=== PATIENT | male | born 1985 | race Caucasian/White ===

== ENCOUNTER 2022-12-09 17:09 | Inpatient (IN) | payer BC ==
[2022-12-09] MEDS ORDERED: LORazepam 2 MG/ML INJ IV STA (17:33)
[2022-12-09] MEDS ORDERED: SODIUM CHLORIDE 0.9% 1,000 ML IV STA (17:33)
[2022-12-09] MEDS ORDERED: chlordiazePOXIDE 25 MG CAP PO STA (17:33)
--- NOTE | 2022-12-09 17:38 | ED ---
Alcohol HPI - General Chief Complaint: Alcohol Stated Complaint: Alcohol Withdrawl Time Seen by Provider: 12/09/22 17:28 Source: patient Mode of arrival: ambulatory Limitations: no limitations - History of Present Illness Initial Comments: Patient is a 37-year-old man here with concerns about withdrawal from alcohol. The patient states he drinks approximately three quarters of a fifth of alcohol per day for past 3 weeks approximately. He feels very anxious and tremulous. He has had some nausea and vomiting. No history of seizure. No recent trauma. 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) Previous Visits for Alcohol Intoxication?: Yes Recent Trauma: No Associated Symptoms: nausea, tremors Treatments Prior to Arrival: none - Related Data Previous Rx's Medication Instructions Recorded Folic Acid 1 mg PO DAILY tab 12/15/22 Gabapentin 300 mg PO TID #30 cap 12/15/22 Metoprolol Succinate (ER) [Toprol 50 mg PO BID 30 Days #60 tab 12/15/22 XL] Multivitamins, Thera [Multivitamin 1 each PO DAILY tab 12/15/22 (formulary)] Sertraline [Zoloft] 50 mg PO DAILY 30 Days #30 tab 12/15/22 Thiamine [Vitamin B-1] 300 mg PO TID tab 12/15/22 amLODIPine [Norvasc] 10 mg PO DAILY 30 Days #30 tab 12/15/22 hydrALAZINE HCL [Apresoline] 50 mg PO TID 30 Days #90 tab 12/15/22 Allergies Allergy/AdvReac Type Severity Reaction Status Date / Time No Known Allergies Allergy Verified 12/09/22 18:50 Review of Systems ROS Statement: Those systems with pertinent positive or pertinent negative responses have been documented in the HPI. ROS Other: All systems not noted in ROS Statement are negative. Constitutional: Denies: fever, chills Respiratory: Denies: cough, dyspnea Cardiovascular: Reports: palpitations. Denies: chest pain, edema Gastrointestinal: Denies: abdominal pain, nausea, vomiting, diarrhea Genitourinary: Denies: dysuria, hematuria Skin: Denies: rash Past Medical History Past Medical History: Hypertension History of Any Multi-Drug Resistant Organisms: None Reported Past Surgical History: Joint Replacement, Orthopedic Surgery Past Psychological History: No Psychological Hx Reported Smoking Status: Never smoker Past Alcohol Use History: Daily, Heavy Past Drug Use History: None Reported General Exam Limitations: no limitations General appearance: alert, anxious, other (Mild tremulousness) Head exam: Present: atraumatic, normocephalic Eye exam: Present: normal appearance, PERRL, EOMI. Absent: scleral icterus, conjunctival injection Neck exam: Present: normal inspection Respiratory exam: Present: normal lung sounds bilaterally. Absent: respiratory distress, wheezes, rales, rhonchi, stridor, accessory muscle use Cardiovascular Exam: Present: normal rhythm, tachycardia, normal heart sounds. Absent: systolic murmur, diastolic murmur, rubs, gallop GI/Abdominal exam: Present: soft. Absent: distended, tenderness, guarding, rebound, rigid, mass Extremities exam: Present: normal inspection, normal capillary refill. Absent: pedal edema, calf tenderness Back exam: Present: normal inspection. Absent: CVA tenderness (R), CVA tenderness (L) Neurological exam: Present: alert, oriented X3, CN II-XII intact. Absent: motor sensory deficit Skin exam: Present: warm, dry, intact, normal color. Absent: rash Course Vital Signs 12/09/22 12/09/22 12/09/22 17:11 18:00 19:00 Temperature 98.1 F Pulse Rate 135 H 117 H 121 H Respiratory 20 18 12 Rate Blood Pressure 161/107 188/96 162/103 O2 Sat by Pulse 95 95 95 Oximetry 12/09/22 12/09/22 20:35 21:25 Temperature Pulse Rate 117 H 113 H Respiratory 20 16 Rate Blood Pressure 144/97 147/97 O2 Sat by Pulse 96 96 Oximetry Medical Decision Making - Medical Decision Making Was pt. sent in by a medical professional or institution (, PA, KEY OPERATOR, urgent care, hospital, or snf...) When possible be specific @ -[No] Did you speak to anyone other than the patient for history (EMS, parent, family, police, friend...)? What history was obtained from this source @ -[No] Did you review nursing and triage notes (agree or disagree)? Why? @ -[I reviewed and agree with nursing and triage notes] Were old charts reviewed (outside hosp., previous admission, EMS record, old EKG , old radiological studies, urgent care reports/EKG's, snf records)? Report findings @ -[No old charts were reviewed] Differential Diagnosis (chest pain, altered mental status, abdominal pain women, abdominal pain men, vaginal bleeding, weakness, fever, dyspnea, syncope, headache, dizziness, GI bleed, back pain, seizure, CVA, palpatations, mental hea lth, musculoskeletal)? @ -[The differential diagnosis includes alcohol abuse, alcohol withdrawal syndrome, gastroenteritis, dehydration, amongst other conditions EKG interpreted by me (3pts min.). @ -[As above] X-rays interpreted by me (1pt min.). @ -[None done] CT interpreted by me (1pt min.). @ -[None done] U/S interpreted by me (1pt. min.). @ -[None done] What testing was considered but not performed or refused? (CT, X-rays, U/S, labs)? Why? @ -[None] What meds were considered but not given or refused? Why? @ -[None] Did you discuss the management of the patient with other professionals (professionals i.e. , PA, KEY OPERATOR, lab, RT, psych nurse, social work nurse, graphic specialist, teacher, fare enforcement officer, field nurse case manager)? Give summary @ -[Case discussed with admitting team Was smoking cessation discussed for >3mins.? @ -[No] Was critical care preformed (if so, how long)? @ -[No] Were there social determinants of health that impacted care today? How? (Homelessness, low income, unemployed, alcoholism, drug addiction, trans portation, low edu. Level, literacy, decrease access to med. care, [facility], rehab)? @ -[No] Was there de-escalation of care discussed even if they declined (Discuss DNR or withdrawal of care, Hospice)? DNR status @ -[No] What co-morbidities impacted this encounter? (DM, HTN, Smoking, COPD, CAD, Cancer, CVA, ARF, Chemo, Hep., AIDS, mental health diagnosis, sleep apnea, morbid obesity)? @ -[None] Was patient admitted / discharged? Hospital course, mention meds given and route, prescriptions, significant lab abnormalities, going to OR and other pertinent info. @ -[This patient is 37-year-old man who is manifesting symptoms of alcohol a trial and will be admitted to have benzodiazepine treatment to prevent severe DTs Undiagnosed new problem with uncertain prognosis? @ -[No] Drug Therapy requiring intensive monitoring for toxicity (Heparin, Nitro, Insulin, Cardizem)? @ -[No] Were any procedures done? @ -[No] Diagnosis/symptom? @ -[Acute delirium tremens Acute, or Chronic, or Acute on Chronic? @ -[default] Uncomplicated (without systemic symptoms) or Complicated (systemic symptoms)? @ -[Uncomplicated Side effects of treatment? @ -[No] Exacerbation, Progression, or Severe Exacerbation? @ -[No] Poses a threat to life or bodily function? How? (Chest pain, USA, DC, pneumonia, PE, COPD, DKA, ARF, appy, cholecystitis, CVA, Diverticulitis, Homicidal, Suicidal, threat to staff... and all critical care pts) @ -[Yes, untreated delirium tremens has significant morbidity/mortality - Lab Data Result diagrams: 12/13/22 08:02 12/13/22 08:02 Lab Results 12/09/22 12/09/22 12/09/22 Range/Units 17:49 17:49 17:49 WBC 10.7 H (3.8-10.6) k/uL RBC 4.79 (4.30-5.90) m/uL Hgb 15.4 (13.0-17.5) gm/dL Hct 44.0 (39.0-53.0) % MCV 91.8 (80.0-100.0) fL MCH 32.1 (25.0-35.0) pg MCHC 35.0 (31.0-37.0) g/dL RDW 13.2 (11.5-15.5) % Plt Count 250 (150-450) k/uL MPV 7.5 Neutrophils % 50 % Lymphocytes % 41 % Monocytes % 5 % Eosinophils % 1 % Basophils % 0 % Neutrophils # 5.4 (1.3-7.7) k/uL Lymphocytes # 4.4 (1.0-4.8) k/uL Monocytes # 0.6 (0-1.0) k/uL Eosinophils # 0.1 (0-0.7) k/uL Basophils # 0.0 (0-0.2) k/uL PT 10.9 (9.0-12.0) sec INR 1.0 (<1.2) Sodium 136 L (137-145) mmol/L Potassium 3.9 (3.5-5.1) mmol/L Chloride 97 L (98-107) mmol/L Carbon Dioxide 20 L (22-30) mmol/L Anion Gap 19 mmol/L BUN 7 L (9-20) mg/dL Creatinine 0.79 (0.66-1.25) mg/dL Est GFR (CKD-EPI)AfAm >90 (>60 ml/min/1.73 sqM) Est GFR (CKD-EPI)NonAf >90 (>60 ml/min/1.73 sqM) Glucose 117 H (74-99) mg/dL Calcium 9.1 (8.4-10.2) mg/dL Magnesium 2.3 (1.6-2.3) mg/dL Total Bilirubin 0.9 (0.2-1.3) mg/dL AST 64 H (17-59) U/L ALT 63 H (4-49) U/L Alkaline Phosphatase 77 (38-126) U/L Troponin I (0.000-0.034) ng/mL Total Protein 8.5 H (6.3-8.2) g/dL Albumin 5.1 H (3.5-5.0) g/dL Amylase 38 (30-110) U/L Lipase 109 (23-300) U/L Serum Alcohol 283 H* mg/dL 12/09/22 Range/Units 19:59 WBC (3.8-10.6) k/uL RBC (4.30-5.90) m/uL Hgb (13.0-17.5) gm/dL Hct (39.0-53.0) % MCV (80.0-100.0) fL MCH (25.0-35.0) pg MCHC (31.0-37.0) g/dL RDW (11.5-15.5) % Plt Count (150-450) k/uL MPV Neutrophils % % Lymphocytes % % Monocytes % % Eosinophils % % Basophils % % Neutrophils # (1.3-7.7) k/uL Lymphocytes # (1.0-4.8) k/uL Monocytes # (0-1.0) k/uL Eosinophils # (0-0.7) k/uL Basophils # (0-0.2) k/uL PT (9.0-12.0) sec INR (<1.2) Sodium (137-145) mmol/L Potassium (3.5-5.1) mmol/L Chloride (98-107) mmol/L Carbon Dioxide (22-30) mmol/L Anion Gap mmol/L BUN (9-20) mg/dL Creatinine (0.66-1.25) mg/dL Est GFR (CKD-EPI)AfAm (>60 ml/min/1.73 sqM) Est GFR (CKD-EPI)NonAf (>60 ml/min/1.73 sqM) Glucose (74-99) mg/dL Calcium (8.4-10.2) mg/dL Magnesium (1.6-2.3) mg/dL Total Bilirubin (0.2-1.3) mg/dL AST (17-59) U/L ALT (4-49) U/L Alkaline Phosphatase (38-126) U/L Troponin I <0.012 (0.000-0.034) ng/mL Total Protein (6.3-8.2) g/dL Albumin (3.5-5.0) g/dL Amylase (30-110) U/L Lipase (23-300) U/L Serum Alcohol mg/dL - EKG Data -: EKG Interpreted by Dc EKG shows normal: axis (Normal), intervals (Normal), QRS complexes (Normal) Rate: tachycardia (rate 160 bpm) Interpretation: other (The underlying rhythm appears to be supraventricular tachycardia rate 160 bpm) Disposition Clinical Impression: Alcohol withdrawal syndrome Disposition: ADMITTED IP TO THIS [facility] Condition: Stable Is patient prescribed a controlled substance at d/c from ED?: No
[2022-12-09 17:56] LABS: Basophils % (A) 0 %; Eosinophils # (A) 0.1 k/uL (0-0.7); Eosinophils % (A) 1 %; HGB 15.4 gm/dL (13.0-17.5); Lymphocytes # (A) 4.4 k/uL (1.0-4.8); Lymphocytes % (A) 41 %; MCH 32.1 pg (25.0-35.0); MCV 91.8 fL (80.0-100.0); Mean Platelet Volume 7.5; Monocytes # (A) 0.6 k/uL (0-1.0); Monocytes % (A) 5 %; Neutrophils # (A) 5.4 k/uL (1.3-7.7); Neutrophils % (A) 50 %; Platelet Count 250 k/uL (150-450); RBC 4.79 m/uL (4.30-5.90); RDW 13.2 % (11.5-15.5); WBC 10.7 k/uL (3.8-10.6)
[2022-12-09 18:06] LABS: Prothrombin Time 10.9 sec (9.0-12.0)
[2022-12-09 18:14] LABS: ALT 63 U/L (4-49); AST 64 U/L (17-59); African American GFR (CKD) >90 (>60 ml/min/1.73 sqM); Albumin 5.1 g/dL (3.5-5.0); Alkaline Phosphatase 77 U/L (38-126); Amylase 38 U/L (30-110); Anion Gap 19 mmol/L; Blood Urea Nitrogen 7 mg/dL (9-20); Calcium 9.1 mg/dL (8.4-10.2); Carbon Dioxide 20 mmol/L (22-30); Chloride 97 mmol/L (98-107); Glucose 117 mg/dL (74-99); Lipase 109 U/L (23-300); Magnesium 2.3 mg/dL (1.6-2.3); Non-African American GFR(CKD) >90 (>60 ml/min/1.73 sqM); Potassium 3.9 mmol/L (3.5-5.1); Sodium 136 mmol/L (137-145); Total Bilirubin 0.9 mg/dL (0.2-1.3); Total Protein 8.5 g/dL (6.3-8.2)
[2022-12-09] MEDS ORDERED: ONDANSETRON 4 MG/2 ML VIAL IVP STA (18:14)
[2022-12-09 18:21] LABS: Alcohol 283 mg/dL
[2022-12-09] MEDS ORDERED: NALOXONE 0.4 MG/ML 1 ML VIAL IV PRN (20:18)
[2022-12-09] MEDS ORDERED: LORazepam 2 MG/ML INJ IV PRN ×2 (20:20)
[2022-12-09] MEDS ORDERED: THIAMINE 100 MG/ML 2 ML VIAL IM STA (20:20)
[2022-12-09] MEDS: SODIUM CHLORIDE 0.9% 1,000 ML IV SCH (21:03)
[2022-12-09] MEDS: FAMOTIDINE 20 MG TAB PO SCH (22:35)
[2022-12-10] MEDS: LORazepam 2 MG/ML INJ IV PRN ×5 (00:14→20:38)
[2022-12-10] MEDS: ONDANSETRON 4 MG/2 ML VIAL IVP PRN ×2 (05:21→20:37)
[2022-12-10] MEDS: SODIUM CHLORIDE 0.9% 1,000 ML IV SCH ×2 (06:37→20:37)
[2022-12-10] MEDS: FOLIC ACID 1 MG TAB PO SCH (08:57)
[2022-12-10] MEDS: FAMOTIDINE 20 MG TAB PO SCH ×2 (08:57→20:36)
[2022-12-10] MEDS: MULTIVITAMINS, THERA 1 EACH TAB PO SCH (08:57)
[2022-12-10] MEDS ORDERED: THIAMINE 100 MG TAB PO SCH (09:00)
[2022-12-10] MEDS: ACETAMINOPHEN TAB 325 MG TAB PO PRN (10:57)
--- NOTE | 2022-12-10 11:42 | P.CN ---
Psychiatric Consult - . Consult date: 12/10/22 Consult:: 12/10/22 11:35 This is a psychiatric consultation on Caleb Woodall who is a 37-year-old male and was currently hospitalized with chronic issues with alcohol abuse and depression Patient admits that he has had chronic issues with some anxiety issues but is not sure if which came first He says that he started drinking during his adolescent years and that it has progressively gotten worse He says that he's been taking more than usual in the last 2 weeks where he is being drinking half to 1 bottle of vodka on a daily basis He says that he is tried to stop on his own but has experienced some withdrawals which shakiness and tremors He denies any suicidal ideations or plans 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 and denies that he has any stressful life or work He says that he is single and is not dealing with any stressful family issues He denies any previous psychiatric hospitalizations or treatments He denies any substance use treatment although he states that he has attended some AA classes Past history personal and social history Patient denies any other substance use besides alcohol He denies any history of psychiatric illness or treatment He denies any history of suicidal ideations or attempts Mental status examination: General Appearance: Casually dressed and groomed history clothes highlights in his hair Behavior: Patient is a laying in bed without any agitated behavior. Not responding to any internal stimuli Speech: Patient's speech is [fluent and nonpressured.] Mood/Affect: Patient reports their mood is "okay", affect is congruent and constricted. Suicidality/Homicidality: Patient denies having any homicidal ideation intent or plan. [Denies any suicidal ideations intent or plan] Perceptions: Patient denies any visual hallucinations [and denies any auditory hallucinations] Though content/process: Goal-directed sequential and logical Memory and concentration: Alert and oriented to time place and person concentration and attention span are fair Judgment and insight: Fair Diagnostic impression: Adjustment disorder with anxiety features Mood disorder most likely alcohol related Anxiety disorder most likely alcohol related Alcohol use disorder unspecified Plan: The patient does not meet the criteria for involuntary O voluntary psychiatric hospitalization Patient is a good candidate for initial detox and referral to a substance use program including attending psychosocial support system like AA and NA Would also recommend starting the patient on gabapentin 300 mg 3 times a day which would also help with withdrawal symptoms as well as decreasing the craving Similarly we'll also recommend starting the patient on naltrexone 50 mg daily as of tomorrow work is 1 day after the last alcohol dose It also from addition of Zoloft starting at 50 mg a day to start with which may help both anxiety and dysphoria Thank you very much for kind referral please feel free to contact me if any further questions Eddi West M.D. 12/10/2022
--- NOTE | 2022-12-10 12:28 | P.HPIM ---
History of Present Illness H&P Date: 12/10/22 History of present illness; patient is a 37-year-old gentleman with past medical history significant for alcohol abuse who presented to the ER for alcohol detox. Patient states that he has been drinking a lot recently. Patient admitted to drinking three quarters of a fifth of alcohol every day for the last few weeks. Patient denies any auditory or visual hallucinations. Does admit to being very anxious. Patient is unsteady on ambulation. No history of previous seizures. No complain of homicidal or suicidal thougts. Initial lab work in the ER showed WBC 10.7, hemoglobin 15.4, platelet count 250, sodium 1:30, potassium 3.9, BUN 7, creatinine 0.79, serum alcohol 283, AST 64, ALT 63 Patient admitted to medicine service REVIEW OF SYSTEMS: CONSTITUTIONAL: No fever, no malaise, no fatigue. Complaining of being restless and tremulous HEENT: No recent visual problems or hearing problems. Denied any sore throat. CARDIOVASCULAR: No chest pain, orthopnea, PND, no palpitations, no syncope. PULMONARY: No shortness of breath, no cough, no hemoptysis. GASTROINTESTINAL: Complaining of nausea and vomiting. Denies abdominal pain NEUROLOGICAL: No headaches, no weakness, no numbness. HEMATOLOGICAL: Denies any bleeding or petechiae. GENITOURINARY: Denies any burning micturition, frequency, or urgency. MUSCULOSKELETAL/RHEUMATOLOGICAL: Denies any joint pain, swelling, or any muscle pain. ENDOCRINE: Denies any polyuria or polydipsia. The rest of the 14-point review of systems is negative. PHYSICAL EXAMINATION: GENERAL: The patient is alert and oriented x3, not in any acute distress. Tremulous HEENT: Pupils are round and equally reacting to light. EOMI. No scleral icterus. No conjunctival pallor. Normocephalic, atraumatic. No pharyngeal erythema. No t hyromegaly. CARDIOVASCULAR: S1 and S2 present. No murmurs, rubs, or gallops. PULMONARY: Chest is clear to auscultation, no wheezing or crackles. ABDOMEN: Soft, nontender, nondistended, normoactive bowel sounds. No palpable organomegaly. MUSCULOSKELETAL: No joint swelling or deformity. EXTREMITIES: No cyanosis, clubbing, or pedal edema. NEUROLOGICAL: Gross neurological examination did not reveal any focal deficits. SKIN: No rashes. Assessment and plan alcohol abuse Alcoholic hepatitis Monitor vital signs Monitor CBC Monitor CMP Continue high dose thiamine and folic acid Continue CIWA protocol continue IV fluid continue antiemetics Patient counseled in detail regarding cessation of alcohol,. At this time is willing to stop drinking Consults psychiatry Past Medical History Past Medical History: Hypertension Additional Past Medical History / Comment(s): aortic insufficiency- dx 5 years ago History of Any Multi-Drug Resistant Organisms: None Reported Past Surgical History: Orthopedic Surgery Additional Past Surgical History / Comment(s): rt knee- repaired 3 ligaments Past Anesthesia/Blood Transfusion Reactions: Motion Sickness Past Psychological History: Anxiety, Depression, Panic Disorder Smoking Status: Former smoker Past Alcohol Use History: Daily, Heavy Additional Past Alcohol Use History / Comment(s): last 2 weeks at least a pint of Titos a day. Past Drug Use History: Cocaine Additional Drug Use History / Comment(s): cocaine use in the past, 3 years ago Medications and Allergies Home Medications Medication Instructions Recorded Confirmed Type No Known Home Medications 12/09/22 12/09/22 History Allergies Allergy/AdvReac Type Severity Reaction Status Date / Time No Known Allergies Allergy Verified 12/09/22 18:50 Physical Exam Vitals: Vital Signs Temp Pulse Pulse Resp BP BP Pulse Ox 12/10/22 04:00 99.1 F 107 H 14 129/74 99 12/10/22 00:15 16 12/10/22 00:00 99.4 F 120 H 16 133/78 96 12/09/22 21:51 98.6 F 109 H 16 154/95 97 12/09/22 21:25 113 H 16 147/97 96 12/09/22 20:35 117 H 20 144/97 96 12/09/22 19:00 121 H 12 162/103 95 12/09/22 18:00 117 H 18 188/96 95 12/09/22 17:11 98.1 F 135 H 20 161/107 95 Intake and Output 12/09/22 12/10/22 12/10/22 22:59 06:59 14:59 Intake Total 560 180 Balance 560 180 Intake: Oral 560 180 Other: # Voids 1 Weight 104.326 kg Results CBC & Chem 7: 12/09/22 17:49 12/09/22 17:49 Labs: Abnormal Lab Results - Last 24 Hours (Table) 12/09/22 12/09/22 Range/Units 17:49 17:49 WBC 10.7 H (3.8-10.6) k/uL Sodium 136 L (137-145) mmol/L Chloride 97 L (98-107) mmol/L Carbon Dioxide 20 L (22-30) mmol/L BUN 7 L (9-20) mg/dL Glucose 117 H (74-99) mg/dL AST 64 H (17-59) U/L ALT 63 H (4-49) U/L Total Protein 8.5 H (6.3-8.2) g/dL Albumin 5.1 H (3.5-5.0) g/dL Serum Alcohol 283 H* mg/dL Thrombosis Risk Factor Assmnt - Choose All That Apply Any of the Below Risk Factors Present?: No Other Risk Factors: No Other congenital or acquired thrombophilia - If yes, enter type in comment: No Thrombosis Risk Factor Assessment Level: Very Low Risk
[2022-12-10] MEDS: THIAMINE 100 MG TAB PO SCH ×2 (15:33→20:35)
[2022-12-10] MEDS: GABAPENTIN 300 MG CAP PO SCH ×2 (15:33→20:36)
[2022-12-10] MEDS: hydrALAZINE HCL 25 MG TAB PO PRN (16:01)
[2022-12-10] MEDS ORDERED: hydrALAZINE HCL 25 MG TAB PO STA (21:53)
[2022-12-11] MEDS: LORazepam 2 MG/ML INJ IV PRN (00:01)
[2022-12-11] MEDS: hydrALAZINE HCL 25 MG TAB PO PRN ×2 (00:49→07:52)
[2022-12-11] MEDS: GABAPENTIN 300 MG CAP PO SCH ×3 (07:53→20:27)
[2022-12-11] MEDS: THIAMINE 100 MG TAB PO SCH ×3 (07:53→20:27)
[2022-12-11] MEDS: FOLIC ACID 1 MG TAB PO SCH (07:53)
[2022-12-11] MEDS: FAMOTIDINE 20 MG TAB PO SCH ×2 (07:53→20:27)
[2022-12-11] MEDS: MULTIVITAMINS, THERA 1 EACH TAB PO SCH (07:53)
[2022-12-11] MEDS: SERTRALINE 50 MG TAB PO SCH (07:53)
[2022-12-11 08:47] LABS: Basophils % (A) 0 %; Eosinophils # (A) 0.2 k/uL (0-0.7); Eosinophils % (A) 3 %; HCT 46.2 % (39.0-53.0); HGB 15.7 gm/dL (13.0-17.5); Lymphocytes % (A) 33 %; MCH 32.3 pg (25.0-35.0); MCHC 33.9 g/dL (31.0-37.0); MCV 95.1 fL (80.0-100.0); Mean Platelet Volume 8.3; Monocytes # (A) 0.4 k/uL (0-1.0); Monocytes % (A) 7 %; Neutrophils # (A) 3.4 k/uL (1.3-7.7); Neutrophils % (A) 56 %; Platelet Count 126 k/uL (150-450); RBC 4.86 m/uL (4.30-5.90); RDW 13.5 % (11.5-15.5); WBC 6.1 k/uL (3.8-10.6)
[2022-12-11] MEDS: chlordiazePOXIDE 25 MG CAP PO PRN ×2 (09:34→20:26)
[2022-12-11 11:34] LABS: ALT 62 U/L (4-49); AST 69 U/L (17-59); African American GFR (CKD) >90 (>60 ml/min/1.73 sqM); Albumin 4.2 g/dL (3.5-5.0); Alkaline Phosphatase 65 U/L (38-126); Anion Gap 7 mmol/L; Blood Urea Nitrogen 9 mg/dL (9-20); Calcium 8.6 mg/dL (8.4-10.2); Carbon Dioxide 26 mmol/L (22-30); Chloride 103 mmol/L (98-107); Glucose 126 mg/dL (74-99); Non-African American GFR(CKD) >90 (>60 ml/min/1.73 sqM); Potassium 3.8 mmol/L (3.5-5.1); Sodium 136 mmol/L (137-145); Total Bilirubin 0.7 mg/dL (0.2-1.3)
[2022-12-11] MEDS: amLODIPine 5 MG TAB PO SCH (12:00)
--- NOTE | 2022-12-11 13:33 | P.PN ---
Subjective Progress Note Date: 12/11/22 patient is a 37-year-old gentleman with past medical history significant for alcohol abuse who presented to the ER for alcohol detox. Patient states that he has been drinking a lot recently. Patient admitted to drinking three quarters of a fifth of alcohol every day for the last few weeks. Patient denies any auditory or visual hallucinations. Does admit to being very anxious. Patient is unsteady on ambulation. No history of previous seizures. No complain of homicidal or suicidal thougts. Initial lab work in the ER showed WBC 10.7, hemoglobin 15.4, platelet count 250, sodium 1:30, potassium 3.9, BUN 7, creatinine 0.79, serum alcohol 283, AST 64, ALT 63 Patient admitted to medicine service 12/11. Patient seen and examined. Blood pressure continues to be elevated, discussed with patient regarding starting patient on blood pressure medication, patient agreed REVIEW OF SYSTEMS: CONSTITUTIONAL: No fever, no malaise,. CARDIOVASCULAR: No chest pain, no palpitations, no syncope. PULMONARY: No shortness of breath, no cough, GASTROINTESTINAL: No diarrhea, no nausea, no vomiting, no abdominal pain. NEUROLOGICAL: No headaches, no weakness, PHYSICAL EXAMINATION: GENERAL: The patient is alert and oriented x3, not in any acute distress. Well developed, well nourished. HEENT: Pupils are round and equally reacting to light. EOMI. No scleral icterus. No conjunctival pallor. Normocephalic, atraumatic. No pharyngeal erythema. No thyromegaly. CARDIOVASCULAR: S1 and S2 present. No murmurs, rubs, or gallops. PULMONARY: Chest is clear to auscultation, no wheezing or crackles. ABDOMEN: Soft, nontender, nondistended, normoactive bowel sounds. No palpable organomegaly. MUSCULOSKELETAL: No joint swelling or deformity. EXTREMITIES: No cyanosis, clubbing, or pedal edema. NEUROLOGICAL: Gross neurological examination did not reveal any focal deficits. SKIN: No rashes. Assessment and plan alcohol abuse Alcoholic hepatitis Hypertension Monitor vital signs Monitor CBC Monitor CMP Continue high dose thiamine and folic acid Continue CIWA protocol continue IV fluid Start Norvasc continue antiemetics Psych evaluated the patient recommended the following Patient is a good candidate for initial detox and referral to a substance use program including attending psychosocial support system like [facility] and NA Would also recommend starting the patient on gabapentin 300 mg 3 times a day which would also help with withdrawal symptoms as well as decreasing the craving Similarly we'll also recommend starting the patient on naltrexone 50 mg daily as of tomorrow work is 1 day after the last alcohol dose It also from addition of Zoloft starting at 50 mg a day to start with which may help both anxiety and dysphoria Objective - Vital Signs Vital signs: Vital Signs Temp 98 F 12/11/22 04:00 Pulse 71 12/11/22 04:00 Resp 18 12/11/22 04:00 BP 137/77 12/11/22 04:00 Pulse Ox 97 12/11/22 04:00 FiO2 Intake & Output 12/10/22 12/11/22 12/11/22 18:59 06:59 18:59 Intake Total 900 180 Balance 900 180 Intake: Oral 900 180 Other: Voiding Method Toilet # Voids 3 2 - Labs CBC & Chem 7: 12/11/22 07:42 12/11/22 10:25 Labs: Abnormal Lab Results - Last 24 Hours (Table) 12/11/22 Range/Units 07:42 Plt Count 126 L (150-450) k/uL
[2022-12-11 14:04] VITALS: BMI 30.3
[2022-12-11] MEDS: SODIUM CHLORIDE 0.9% 1,000 ML IV SCH (16:04)
[2022-12-11] MEDS: hydrALAZINE HCL 25 MG TAB PO SCH ×2 (16:06→20:27)
[2022-12-12] MEDS: chlordiazePOXIDE 25 MG CAP PO PRN ×3 (09:37→22:00)
[2022-12-12] MEDS: MULTIVITAMINS, THERA 1 EACH TAB PO SCH (09:37)
[2022-12-12] MEDS: SERTRALINE 50 MG TAB PO SCH (09:37)
[2022-12-12] MEDS: amLODIPine 5 MG TAB PO SCH (09:37)
[2022-12-12] MEDS: FOLIC ACID 1 MG TAB PO SCH (09:37)
[2022-12-12] MEDS: THIAMINE 100 MG TAB PO SCH ×3 (09:37→20:35)
[2022-12-12] MEDS: GABAPENTIN 300 MG CAP PO SCH ×3 (09:37→20:32)
[2022-12-12] MEDS: hydrALAZINE HCL 25 MG TAB PO SCH ×3 (09:37→20:33)
[2022-12-12] MEDS: FAMOTIDINE 20 MG TAB PO SCH ×2 (09:37→20:32)
--- NOTE | 2022-12-12 12:53 | P.PN ---
Subjective Progress Note Date: 12/12/22 patient is a 37-year-old gentleman with past medical history significant for alcohol abuse who presented to the ER for alcohol detox. Patient states that he has been drinking a lot recently. Patient admitted to drinking three quarters of a fifth of alcohol every day for the last few weeks. Patient denies any auditory or visual hallucinations. Does admit to being very anxious. Patient is unsteady on ambulation. No history of previous seizures. No complain of homicidal or suicidal thougts. Initial lab work in the ER showed WBC 10.7, hemoglobin 15.4, platelet count 250, sodium 1:30, potassium 3.9, BUN 7, creatinine 0.79, serum alcohol 283, AST 64, ALT 63 Patient admitted to medicine service 12/11. Patient seen and examined. Blood pressure continues to be elevated, discussed with patient regarding starting patient on blood pressure medication, patient agreed 12/12. Patient seen and examined. Blood pressure continues to be elevated, currently on Norvasc and hydralazine REVIEW OF SYSTEMS: CONSTITUTIONAL: No fever, no malaise,. CARDIOVASCULAR: No chest pain, no palpitations, no syncope. PULMONARY: No shortness of breath, no cough, GASTROINTESTINAL: No diarrhea, no nausea, no vomiting, no abdominal pain. NEUROLOGICAL: No headaches, no weakness, PHYSICAL EXAMINATION: GENERAL: The patient is alert and oriented x3, not in any acute distress. Well developed, well nourished. HEENT: Pupils are round and equally reacting to light. EOMI. No scleral icterus. No conjunctival pallor. Normocephalic, atraumatic. No pharyngeal erythema. No thyromegaly. CARDIOVASCULAR: S1 and S2 present. No murmurs, rubs, or gallops. PULMONARY: Chest is clear to auscultation, no wheezing or crackles. ABDOMEN: Soft, nontender, nondistended, normoactive bowel sounds. No palpable organomegaly. MUSCULOSKELETAL: No joint swelling or deformity. EXTREMITIES: No cyanosis, clubbing, or pedal edema. NEUROLOGICAL: Gross neurological examination did not reveal any focal deficits. SKIN: No rashes. Assessment and plan alcohol abuse Alcoholic hepatitis Hypertension Monitor vital signs Monitor CBC Monitor CMP Continue high dose thiamine and folic acid Continue CIWA protocol Continue Norvasc and hydralazine continue antiemetics Psych evaluated the patient recommended the following Patient is a good candidate for initial detox and referral to a substance use program including attending psychosocial support system like AA and NA Would also recommend starting the patient on gabapentin 300 mg 3 times a day which would also help with withdrawal symptoms as well as decreasing the craving Similarly we'll also recommend starting the patient on naltrexone 50 mg daily as of tomorrow work is 1 day after the last alcohol dose It also from addition of Zoloft starting at 50 mg a day to start with which may help both anxiety and dysphoria Objective - Vital Signs Vital signs: Vital Signs Temp 97.6 F 12/11/22 23:28 Pulse 89 12/12/22 04:00 Resp 14 12/12/22 04:00 BP 156/102 12/12/22 04:00 Pulse Ox 98 12/12/22 04:00 FiO2 Intake & Output 12/11/22 12/12/22 12/12/22 18:59 06:59 18:59 Intake Total 540 Balance 540 Weight 104.326 kg Intake: Oral 540 Other: Voiding Method Toilet Toilet # Voids 3 - Labs CBC & Chem 7: 12/11/22 07:42 12/11/22 10:25 Labs: Abnormal Lab Results - Last 24 Hours (Table) 12/11/22 Range/Units 10:25 Sodium 136 L (137-145) mmol/L Glucose 126 H (74-99) mg/dL AST 69 H (17-59) U/L ALT 62 H (4-49) U/L
[2022-12-12 16:24] LABS: Appearance,Urine Clear (Clear); Bilirubin,Urine Negative (Negative); Blood,Urine Negative (Negative); Color,Urine Colorless; Glucose,Urine (UA) Negative (Negative); Ketones,Urine Negative (Negative); Leukocyte Esterase,Urine Negative (Negative); Nitrite,Urine Negative (Negative); PH, Urine 6.5 (5.0-8.0); Protein,Urine Negative (Negative); Specific Gravity,Urine 1.002 (1.001-1.035); Urobilinogen,Urine <2.0 mg/dL (<2.0)
[2022-12-13] MEDS: ACETAMINOPHEN TAB 325 MG TAB PO PRN ×2 (03:23→16:56)
[2022-12-13] MEDS: chlordiazePOXIDE 25 MG CAP PO PRN ×3 (03:23→15:59)
[2022-12-13 08:41] LABS: Basophils % (A) 1 %; Eosinophils # (A) 0.3 k/uL (0-0.7); Eosinophils % (A) 4 %; HCT 48.8 % (39.0-53.0); HGB 16.4 gm/dL (13.0-17.5); Lymphocytes # (A) 3.1 k/uL (1.0-4.8); Lymphocytes % (A) 36 %; MCH 31.8 pg (25.0-35.0); MCHC 33.6 g/dL (31.0-37.0); MCV 94.5 fL (80.0-100.0); Mean Platelet Volume 7.7; Monocytes # (A) 0.6 k/uL (0-1.0); Monocytes % (A) 8 %; Neutrophils # (A) 4.2 k/uL (1.3-7.7); Neutrophils % (A) 49 %; Platelet Count 149 k/uL (150-450); RBC 5.16 m/uL (4.30-5.90); RDW 13.9 % (11.5-15.5); WBC 8.5 k/uL (3.8-10.6)
[2022-12-13] MEDS: THIAMINE 100 MG TAB PO SCH ×3 (08:50→20:28)
[2022-12-13] MEDS: amLODIPine 10 MG TAB PO SCH (08:50)
[2022-12-13] MEDS: hydrALAZINE HCL 25 MG TAB PO SCH (08:50)
[2022-12-13] MEDS: FOLIC ACID 1 MG TAB PO SCH (08:50)
[2022-12-13] MEDS: FAMOTIDINE 20 MG TAB PO SCH ×2 (08:50→20:28)
[2022-12-13] MEDS: GABAPENTIN 300 MG CAP PO SCH ×3 (08:50→20:28)
[2022-12-13] MEDS: SERTRALINE 50 MG TAB PO SCH (08:50)
[2022-12-13] MEDS: MULTIVITAMINS, THERA 1 EACH TAB PO SCH (08:50)
[2022-12-13 08:57] LABS: ALT 162 U/L (4-49); African American GFR (CKD) >90 (>60 ml/min/1.73 sqM); Albumin 4.9 g/dL (3.5-5.0); Anion Gap 16 mmol/L; Blood Urea Nitrogen 13 mg/dL (9-20); Calcium 9.6 mg/dL (8.4-10.2); Carbon Dioxide 20 mmol/L (22-30); Chloride 100 mmol/L (98-107); Glucose 101 mg/dL (74-99); Non-African American GFR(CKD) >90 (>60 ml/min/1.73 sqM); Sodium 136 mmol/L (137-145); Total Protein 8.2 g/dL (6.3-8.2)
[2022-12-13 09:03] LABS: Potassium 4.2 mmol/L (3.5-5.1)
[2022-12-13 09:04] LABS: AST 168 U/L (17-59); Alkaline Phosphatase 72 U/L (38-126)
[2022-12-13] MEDS ORDERED: hydrALAZINE HCL 25 MG TAB PO STA (12:46)
--- NOTE | 2022-12-13 14:11 | P.PN ---
Subjective Progress Note Date: 12/13/22 patient is a 37-year-old gentleman with past medical history significant for alcohol abuse who presented to the ER for alcohol detox. Patient states that he has been drinking a lot recently. Patient admitted to drinking three quarters of a fifth of alcohol every day for the last few weeks. Patient denies any auditory or visual hallucinations. Does admit to being very anxious. Patient is unsteady on ambulation. No history of previous seizures. No complain of homicidal or suicidal thougts. Initial lab work in the ER showed WBC 10.7, hemoglobin 15.4, platelet count 250, sodium 1:30, potassium 3.9, BUN 7, creatinine 0.79, serum alcohol 283, AST 64, ALT 63 Patient admitted to medicine service 12/11. Patient seen and examined. Blood pressure continues to be elevated, discussed with patient regarding starting patient on blood pressure medication, patient agreed 12/12. Patient seen and examined. Blood pressure continues to be elevated, currently on Norvasc and hydralazine 12/13. Patient seen and examined. Blood pressure is still elevated. Dose of Norvasc and hydralazine increased REVIEW OF SYSTEMS: CONSTITUTIONAL: No fever, no malaise,. CARDIOVASCULAR: No chest pain, no palpitations, no syncope. PULMONARY: No shortness of breath, no cough, GASTROINTESTINAL: No diarrhea, no nausea, no vomiting, no abdominal pain. NEUROLOGICAL: No headaches, no weakness, PHYSICAL EXAMINATION: GENERAL: The patient is alert and oriented x3, not in any acute distress. Well developed, well nourished. HEENT: Pupils are round and equally reacting to light. EOMI. No scleral icterus. No conjunctival pallor. Normocephalic, atraumatic. No pharyngeal erythema. No thyromegaly. CARDIOVASCULAR: S1 and S2 present. No murmurs, rubs, or gallops. PULMONARY: Chest is clear to auscultation, no wheezing or crackles. ABDOMEN: Soft, nontender, nondistended, normoactive bowel sounds. No palpable organomegaly. MUSCULOSKELETAL: No joint swelling or deformity. EXTREMITIES: No cyanosis, clubbing, or pedal edema. NEUROLOGICAL: Gross neurological examination did not reveal any focal deficits. SKIN: No rashes. Assessment and plan alcohol abuse Alcoholic hepatitis Hypertension Monitor vital signs Monitor CBC Monitor CMP Continue high dose thiamine and folic acid Continue CIWA protocol Continue Norvasc and hydralazine, does of Norvasc increased to 10 mg, Ordered 2-D echo continue antiemetics Psych evaluated the patient recommended the following Patient is a good candidate for initial detox and referral to a substance use program including attending psychosocial support system like [facility] and [facility] Would also recommend starting the patient on gabapentin 300 mg 3 times a day which would also help with withdrawal symptoms as well as decreasing the craving Similarly we'll also recommend starting the patient on naltrexone 50 mg daily as of tomorrow work is 1 day after the last alcohol dose It also from addition of Zoloft starting at 50 mg a day to start with which may help both anxiety and dysphoria Consult cardiology Objective - Vital Signs Vital signs: Vital Signs Temp 98.2 F 12/13/22 08:15 Pulse 112 H 12/13/22 08:15 Resp 17 12/13/22 08:15 BP 169/106 12/13/22 08:15 Pulse Ox 99 12/13/22 08:15 FiO2 Intake & Output 12/12/22 12/13/22 12/13/22 18:59 06:59 18:59 Intake Total 500 540 240 Output Total 300 Balance 500 540 -60 Intake: Oral 500 540 240 Output: Urine 300 Other: Voiding Method Toilet Toilet # Voids 3 1 # Bowel Movements 1 - Labs CBC & Chem 7: 12/13/22 08:02 12/13/22 08:02 Labs: Abnormal Lab Results - Last 24 Hours (Table) 12/13/22 12/13/22 Range/Units 08:02 08:02 Plt Count 149 L (150-450) k/uL Sodium 136 L (137-145) mmol/L Carbon Dioxide 20 L (22-30) mmol/L Glucose 101 H (74-99) mg/dL AST 168 H (17-59) U/L ALT 162 H (4-49) U/L
--- NOTE | 2022-12-13 14:15 | P.CRDCN ---
History of Present Illness Consult date: 12/13/22 Reason for Consult (text): Hypertensive emergency History of present illness: History of present illness: This is a 37-year-old male patient with past medical history of anxiety, alcohol abuse. Patient has never been diagnosed with hypertension nor started on medication but believes he has been hypertensive for long time. Patient came into the hospital on 12/09 for alcohol intoxication with intent for rehab. Patient was found to be hypertensive throughout his stay and has been started on amlodipine and hydralazine. Both medications have been increased today as his blood pressure is running 169/106. Heart rate is 99-120. Patient denies any cardiac history, no family cardiac history in his immediate family. He is a nonsmoker, he denies illicit drug use. Prior to admission, he was drinking three quarters of the fifth per day. His last alcohol intake was 4 days ago. Echocardiogram has been done and report is pending. EKG sinus tachycardia WBC 8.5, hemoglobin 16.4, platelet count 149. Sodium 136, potassium 4.2, BUN 13 creatinine 0.8. Blood sugar 101. AST 168, ALT 162, alkaline phosphatase 72. TSH 4.510. Cortisol level XVI. Alcohol level [id number] on admission. Urinalysis negative. Home cardiac medications: None Review Of Systems: At the time of my evaluation: Constitutional: No fever, no chills. No weakness, fatigue or lethargy. EENT: No headache. No dizziness. Lungs: No shortness of breath, cough, no sputum production. No wheezing. Cardiovascular: No chest pain, no lower extremity edema. No palpitations. No paroxysmal nocturnal dyspnea. No orthopnea. No lightheadedness or dizziness. No syncopal episodes. Abdominal: No abdominal pain. No nausea, vomiting. Musculoskeletal: No myalgias. No muscle weakness, no frequent falls. Neurologic: No aphasia. No facial droop. No change in mentation. No head injury. No headache. Physical examination: Gen: This is a 37-year-old male. He is resting but appears to be comfortable and in no acute distress. VS: reviewed HEENT: Head is atraumatic, normocephalic. Pupils equal, round. Sclerae is anicteric. NECK: Supple. No JVD. . LUNGS: Clear to auscultation. No wheezes or rhonchi. No intercostal retractions. HEART: Regular rate and rhythm. No murmur. ABDOMEN: Soft No tenderness. EXTREMITIES: No pedal edema. No calf tenderness. NEUROLOGICAL: Patient is awake, alert and oriented x3. Assessment: Hypertensive emergency Alcohol intoxication Alcohol abuse Elevated liver function tests Thrombocytopenia Plan: Continue patient on current medications which include Norvasc 10 mg daily and hydralazine 50 mg 3 times daily scheduled to get the increased dose of 4 PM Give 1 additional hydralazine 25 mg now Start patient on beta carrington Toprol-XL 25 mg daily for tachycardia Obtain 2-D echocardiogram and Doppler study report Further recommendations to follow based upon clinical course Thank you kindly for this consultation. Nurse practitioner note has been reviewed, I agree with documented findings and plan of care. Patient was seen and examined. Past Medical History Past Medical History: Hypertension Additional Past Medical History / Comment(s): aortic insufficiency- dx 5 years ago History of Any Multi-Drug Resistant Organisms: None Reported Past Surgical History: Orthopedic Surgery Additional Past Surgical History / Comment(s): rt knee- repaired 3 ligaments Past Anesthesia/Blood Transfusion Reactions: Motion Sickness Past Psychological History: Anxiety, Depression, Panic Disorder Smoking Status: Former smoker Past Alcohol Use History: Daily, Heavy Additional Past Alcohol Use History / Comment(s): last 2 weeks at least a pint of Titos a day. Past Drug Use History: Cocaine Additional Drug Use History / Comment(s): cocaine use in the past, 3 years ago Medications and Allergies Home Medications Medication Instructions Recorded Confirmed Type No Known Home Medications 12/09/22 12/09/22 History Allergies Allergy/AdvReac Type Severity Reaction Status Date / Time No Known Allergies Allergy Verified 12/09/22 18:50 Physical Exam Vitals: Vital Signs Temp Pulse Resp BP BP Pulse Ox 12/13/22 08:15 98.2 F 112 H 17 169/106 99 12/13/22 08:00 17 12/13/22 03:18 98.1 F 99 16 156/104 12/12/22 23:06 98.6 F 104 H 16 162/102 98 12/12/22 19:25 98.6 F 118 H 16 189/104 98 12/12/22 16:15 124 H 17 182/106 97 12/12/22 12:15 108 H 18 171/101 99 Intake and Output 12/12/22 12/13/22 12/13/22 22:59 06:59 14:59 Intake Total 540 240 Output Total 300 Balance 540 -60 Intake: Oral 540 240 Output: Urine 300 Other: Voiding Method Toilet Toilet # Voids 3 1 # Bowel Movements 1 Results 12/13/22 08:02 12/13/22 08:02 Cardiac Enzymes 12/13/22 Range/Units 08:02 AST 168 H (17-59) U/L CBC 12/13/22 Range/Units 08:02 WBC 8.5 (3.8-10.6) k/uL RBC 5.16 (4.30-5.90) m/uL Hgb 16.4 (13.0-17.5) gm/dL Hct 48.8 (39.0-53.0) % Plt Count 149 L (150-450) k/uL Comprehensive Metabolic Panel 12/13/22 Range/Units 08:02 Sodium 136 L (137-145) mmol/L Potassium 4.2 (3.5-5.1) mmol/L Chloride 100 (98-107) mmol/L Carbon Dioxide 20 L (22-30) mmol/L BUN 13 (9-20) mg/dL Creatinine 0.88 (0.66-1.25) mg/dL Glucose 101 H (74-99) mg/dL Calcium 9.6 (8.4-10.2) mg/dL AST 168 H (17-59) U/L ALT 162 H (4-49) U/L Alkaline Phosphatase 72 (38-126) U/L Total Protein 8.2 (6.3-8.2) g/dL Albumin 4.9 (3.5-5.0) g/dL Current Medications Generic Name Dose Route Start Last Admin Trade Name Freq PRN Reason Stop Dose Admin Acetaminophen 325 mg 12/10/22 10:33 12/13/22 03:23 Acetaminophen Tab 325 Mg Tab PO 325 mg Q6HR PRN Administration Fever and/ or Pain Amlodipine Besylate 10 mg 12/13/22 09:00 12/13/22 08:50 Amlodipine 10 Mg Tab PO 10 mg DAILY MINNIE Administration Chlordiazepoxide HCl 25 mg 12/09/22 20:20 12/13/22 11:28 Chlordiazepoxide 25 Mg Cap PO 25 mg Q4HR PRN Administration Ciwa 4 To 5 Famotidine 20 mg 12/09/22 21:00 12/13/22 08:50 Famotidine 20 Mg Tab PO 20 mg BID MINNIE Administration Folic Acid 1 mg 12/10/22 09:00 12/13/22 08:50 Folic Acid 1 Mg Tab PO 1 mg DAILY MINNIE Administration Gabapentin 300 mg 12/10/22 16:00 12/13/22 08:50 Gabapentin 300 Mg Cap PO 300 mg TID MINNIE Administration Hydralazine HCl 50 mg 12/13/22 16:00 Hydralazine Hcl 50 Mg Tab PO TID MINNIE Lorazepam 1 mg 12/09/22 20:20 12/11/22 00:01 Lorazepam 2 Mg/Ml Inj IV 1 mg Q2HR PRN Administration CIWA 8 or 9 Lorazepam 1 mg 12/09/22 20:20 Lorazepam 2 Mg/Ml Inj IV Q1HR PRN CIWA 10 to 15 Multivitamins 1 each 12/10/22 09:00 12/13/22 08:50 Multivitamins, Thera 1 Each Tab PO 1 each DAILY MINNIE Administration Naloxone HCl 0.2 mg 12/09/22 20:18 Naloxone 0.4 Mg/Ml 1 Ml Vial IV Q2M PRN Opioid Reversal Ondansetron HCl 4 mg 12/10/22 05:16 12/10/22 20:37 Ondansetron 4 Mg/2 Ml Vial IVP 4 mg Q8H PRN Administration Nausea And Vomiting Sertraline HCl 50 mg 12/11/22 09:00 12/13/22 08:50 Sertraline 50 Mg Tab PO 50 mg DAILY MINNIE Administration Thiamine HCl 300 mg 12/10/22 16:00 12/13/22 08:50 Thiamine 100 Mg Tab PO 300 mg TID MINNIE Administration Intake and Output 12/12/22 12/13/22 12/13/22 22:59 06:59 14:59 Intake Total 540 240 Output Total 300 Balance 540 -60 Intake: Oral 540 240 Output: Urine 300 Other: Voiding Method Toilet Toilet # Voids 3 1 # Bowel Movements 1 12/13/22 08:02 12/13/22 08:02
[2022-12-13] MEDS: METOPROLOL SUCCINATE (ER) 25 MG TAB.ER.24H PO SCH (15:56)
[2022-12-13] MEDS: hydrALAZINE HCL 50 MG TAB PO SCH ×2 (15:56→20:28)
--- NOTE | 2022-12-14 05:45 | P.PN ---
Subjective Progress Note Date: 12/14/22 Principal diagnosis: Hypertension emergency This is a 37-year-old gentleman who was admitted to the hospital with alcohol intoxication and hypertension emergency. Also he was found to have elevated liver function tests and thrombocytopenia. He underwent an echo which is pendin g at this point. He was seen this morning. He is asymptomatic and he is no dynamic is stable. Blood work still pending this morning. He reports no cardiovascular symptoms. Assessment Alcohol intoxication Hypertension emergency Abnormal liver function tests Thrombocytopenia Plan Continue the current medical regimen. The pressure appeared to be under good control on the current medical regimen Follow-up with a blood work from this morning Follow-up on the echocardiogram which is still pending Objective - Vital Signs Vital signs: Vital Signs Temp 98.0 F 12/14/22 03:54 Pulse 93 12/14/22 03:54 Resp 16 12/14/22 03:54 BP 133/82 12/14/22 03:54 Pulse Ox 98 12/14/22 03:54 FiO2 Intake & Output 12/13/22 12/13/22 12/14/22 06:59 18:59 06:59 Intake Total 540 1736 360 Output Total 300 Balance 540 1436 360 Intake: Oral 540 1736 360 Output: Urine 300 Other: Voiding Method Toilet Toilet # Voids 1 5 1 # Bowel Movements 1 - Labs CBC & Chem 7: 12/13/22 08:02 12/13/22 08:02 Labs: Abnormal Lab Results - Last 24 Hours (Table) 12/13/22 12/13/22 Range/Units 08:02 08:02 Plt Count 149 L (150-450) k/uL Sodium 136 L (137-145) mmol/L Carbon Dioxide 20 L (22-30) mmol/L Glucose 101 H (74-99) mg/dL AST 168 H (17-59) U/L ALT 162 H (4-49) U/L
[2022-12-14] MEDS: MULTIVITAMINS, THERA 1 EACH TAB PO SCH (07:58)
[2022-12-14] MEDS: hydrALAZINE HCL 50 MG TAB PO SCH ×3 (07:58→20:56)
[2022-12-14] MEDS: FOLIC ACID 1 MG TAB PO SCH (07:58)
[2022-12-14] MEDS: amLODIPine 10 MG TAB PO SCH (07:58)
[2022-12-14] MEDS: GABAPENTIN 300 MG CAP PO SCH ×3 (07:58→20:56)
[2022-12-14] MEDS: FAMOTIDINE 20 MG TAB PO SCH ×2 (07:58→20:56)
[2022-12-14] MEDS: METOPROLOL SUCCINATE (ER) 25 MG TAB.ER.24H PO SCH (07:59)
[2022-12-14] MEDS: SERTRALINE 50 MG TAB PO SCH (07:59)
[2022-12-14] MEDS: THIAMINE 100 MG TAB PO SCH ×3 (07:59→20:56)
[2022-12-14] MEDS: chlordiazePOXIDE 25 MG CAP PO PRN ×3 (08:04→22:54)
--- NOTE | 2022-12-14 09:11 | CDI ---
Documentation Clarification Form Date: 12/13/2022 01:05:00 PM From: Nhi Rizvi RN,CCDS Admit Date: 12/09/2022 08:18:00 PM Patient Name: Roger Woodall Visit Number: [id number] Discharge Date: ATTENTION: The Clinical Documentation Specialists (CDI) and [facility] Coding Staff appreciate your assistance in clarifying documentation. Please respond to the clarification below the line at the bottom and electronically sign. The CDI & [facility] Coding staff will review the response and follow-up if needed. Please note: Queries are made part of the Legal Health Record. If you have any questions, please contact the author of this message via ITS. Dr. Shon Her Your patient has elevated blood pressure on admission and continue per progress notes on 12/12/2022. Based on this information and the findings below, is there an additional diagnosis that is clinically appropriate for this patient? Patient history/risk factors: Hypertension, Daily alcohol use Clinical Indicators: 37-year-old male present with concerns about withdrawal from alcohol. He feels very anxious and tremulous. He has had some nausea and vomiting. 12/09 VS: 161/107 135 20 188/96 117 18 162/103 121 12 12/10 VS 149/96 115 18 159/97 102 19 189/102 108 18 12/11 VS: 183/108 95 17 168/100 [id number] 75 18 12/12 VS / 108 18 182/106 124 17 189/104 118 16 Treatment: Cardiac/Telemetry monitoring Monitor VS, CBC, CMP Continue CIWA protocol Norvasc 10 MG PO Daily 12/13; Toprol Xl 25 MG PO Daily Apresoline 50 MG PO TID 12/13 Ativan 1 MG IV Q2 PRN 12/09-12/11; Zoloft 50 MG PO Daily 12/11-12/13 Is there an additional diagnosis that is clinically appropriate for this patient? [ ] Hypertensive Emergency [ ] Hypertensive Urgency [ ] No additional diagnosis/Not clinically significant [ ] Unable to determine [ ] Other, please specify (Template Last Reviewed: July 2022) MTDD
[2022-12-14 16:44] VITALS: RESP 18
--- NOTE | 2022-12-15 05:55 | P.PN ---
Subjective Progress Note Date: 12/15/22 Principal diagnosis: Hypertension emergency This is a 37-year-old gentleman who was admitted to the hospital with alcohol intoxication and hypertension emergency. Also he was found to have elevated liver function tests and thrombocytopenia. He underwent an echo which is pendin g at this point. He was seen this morning. He is asymptomatic and he is no dynamic is stable. Blood work still pending this morning. He reports no cardiovascular symptoms. 12/15/2022 The patient remains hypertensive and remains tachycardic. The echo still pending. I'm going to increase the dose of beta carrington with Toprol-XL to 50 mg by mouth twice a day and continue the rest of the current medical regimen including amlodipine and continue uptitrate the medication to get the pressure under good control. Meanwhile follow-up on the echocardiogram. Otherwise he is asymptomatic and hemodynamically stable. The examination is remarkable for regular rhythm with clear breathing sounds bilaterally. Assessment Alcohol intoxication Hypertension emergency Abnormal liver function tests Thrombocytopenia Plan Continue the current medical regimen with increase the dose of Toprol-XL Follow-up on the echocardiogram If the echo is unremarkable the patient potentially can be discharged Objective - Vital Signs Vital signs: Vital Signs Temp 98.3 F 12/15/22 04:00 Pulse 115 H 12/15/22 04:00 Resp 18 12/15/22 04:00 BP 148/88 12/15/22 04:00 Pulse Ox 96 12/15/22 04:00 FiO2 Intake & Output 12/14/22 12/14/22 12/15/22 06:59 18:59 06:59 Intake Total 360 2093 Balance 360 2093 Intake: Oral 360 2093 Other: Voiding Method Toilet # Voids 1 2 - Labs CBC & Chem 7: 12/13/22 08:02 12/13/22 08:02
[2022-12-15] MEDS: FAMOTIDINE 20 MG TAB PO SCH (08:57)
[2022-12-15] MEDS: THIAMINE 100 MG TAB PO SCH (08:57)
[2022-12-15] MEDS: hydrALAZINE HCL 50 MG TAB PO SCH (08:57)
[2022-12-15] MEDS: GABAPENTIN 300 MG CAP PO SCH (08:57)
[2022-12-15] MEDS: amLODIPine 10 MG TAB PO SCH (08:58)
[2022-12-15] MEDS: FOLIC ACID 1 MG TAB PO SCH (08:58)
[2022-12-15] MEDS: SERTRALINE 50 MG TAB PO SCH (08:58)
[2022-12-15] MEDS ORDERED: METOPROLOL SUCCINATE (ER) 50 MG TAB.ER.24H PO SCH (09:00)
[2022-12-15] MEDS: MULTIVITAMINS, THERA 1 EACH TAB PO SCH (09:01)
--- NOTE | 2022-12-15 11:20 | CA ---
Transthoracic Echo Report Name: Roger Woodall Age: 37 Gender: M : 1985 Exam Date: 12/13/2022 07:42 Exam Location: [facility] Ht (in): 73 Wt (lb): 230 Ordering Physician: Shon Her MD Attending/Referring Phys: Auto Technician Mauricio Sood Procedure CPT: Indications: Slurred speech, CVA Cardiac Hx: Technical Quality: Fair Contrast 1: Total Dose (mL): Contrast 2: Total Dose (mL): MEASUREMENTS (Male / Female) Normal Values 2D ECHO LV Diastolic Diameter PLAX 4.4 cm 4.2 - 5.9 / 3.9 - 5.3 cm LV Systolic Diameter PLAX 2.8 cm IVS Diastolic Thickness 1.3 cm 0.6 - 1.0 / 0.6 - 0.9 cm LVPW Diastolic Thickness 1.0 cm 0.6 - 1.0 / 0.6 - 0.9 cm LV Relative Wall Thickness 0.5 RV Internal Dim ED PLAX 2.8 cm LVOT Diameter 2.3 cm Aortic Root Diameter 3.0 cm LV Diastolic Volume MOD BP 63.3 cm??? 67 - 155 / 56 - 104 cm??? LV Systolic Volume MOD BP 20.6 cm??? 22 - 58 / 19 - 49 cm??? LV Ejection Fraction MOD BP 67.5 % >= 55 % LV Diastolic Volume MOD 4C 92.7 cm??? LV Systolic Volume MOD 4C 25.6 cm??? LV Ejection Fraction MOD 4C 72.4 % LV Diastolic Length 4C 9.0 cm LV Systolic Length 4C 7.4 cm LV Diastolic Volume MOD 2C 41.2 cm??? LV Systolic Volume MOD 2C 16.0 cm??? LV Ejection Fraction MOD 2C 61.3 % LV Diastolic Length 2C 8.4 cm LV Systolic Length 2C 7.0 cm LA Volume 35.9 cm??? 18 - 58 / 22 - 52 cm??? Ascending Aorta Diameter 3.0 cm DOPPLER AV Peak Velocity 140.9 cm/s AV Peak Gradient 7.9 mmHg AV Mean Velocity 91.8 cm/s AV Mean Gradient 3.9 mmHg AV Velocity Time Integral 27.3 cm AI Peak Velocity 314.6 cm/s AI Peak Gradient 39.6 mmHg AI Pressure Half Time 862.0 ms LVOT Peak Velocity 122.0 cm/s LVOT Peak Gradient 6.0 mmHg AV Area Cont Eq pk 3.5 cm??? MV Peak Velocity 143.4 cm/s MV Peak Gradient 8.2 mmHg MV Mean Velocity 66.1 cm/s MV Mean Gradient 2.2 mmHg MV Velocity Time Integral 32.5 cm Mitral E Point Velocity 63.5 cm/s Mitral A Point Velocity 67.6 cm/s Mitral E to A Ratio 0.9 MV Deceleration Time 228.5 ms MV E' Velocity 7.5 cm/s Mitral E to MV E' Ratio 8.4 TR Peak Velocity 120.6 cm/s TR Peak Gradient 5.8 mmHg Right Ventricular Systolic Press 10.8 mmHg FINDINGS Left Ventricle Normal LV size. Borderline LVH. Left ventricular ejection fraction is estimated at 55-60 %. Right Ventricle Normal right ventricular size. Right Atrium Normal right atrial size. Left Atrium Normal left atrial size. Mitral Valve Structurally normal mitral valve. No mitral stenosis, regurgitation or prolapse. Aortic Valve Aortic valve not well visualized. Mild to moderate AI. No aortic stenosis. Tricuspid Valve Structurally normal tricuspid valve. Trace TR. Pulmonic Valve Pulmonic valve not well visualized. Pericardium Normal pericardium. Aorta Normal size aortic root and proximal ascending aorta. CONCLUSIONS Normal LV size and systolic function Previewed by: Dr. Rhett Mccann MD (Electronically Signed) Final Date: 15 December 2022 11:19
[2022-12-15 11:29] VITALS: PULSE 106
[2022-12-15 11:30] VITALS: BP 144/89; TEMP 97.9
== END 2022-12-15 13:28 | disposition home or self-care (01) | DRG 305 ==
LOC: EC 17:09 → 3SCARD 20:18
PROVIDERS: ADMIT Internal Medicine; ATTEND Internal Medicine
DX: I16.1 Hypertensive emergency (principal); F10.139 Alcohol abuse with withdrawal, unspecified; F10.129 Alcohol abuse with intoxication, unspecified; D69.6 Thrombocytopenia, unspecified; F32.A Depression, unspecified; F41.0 Panic disorder [episodic paroxysmal anxiety]; I10 Essential (primary) hypertension; I35.1 Nonrheumatic aortic (valve) insufficiency; K70.10 Alcoholic hepatitis without ascites; Z79.899 Other long term (current) drug therapy; Z87.891 Personal history of nicotine dependence; Y90.8 Blood alcohol level of 240 mg/100 ml or more
CPT/HCPCS: 36415; 80053; 80320; 81003; 82150; 82533; 83690; 83735; 84443; 84484; 85025; 85610; 93005; 93306; 96361; 96374; 96375; 99285